=== PATIENT | male | born 1950 | race American Indian/Alaskan Native ===

== ENCOUNTER 2017-12-20 23:02 | Emergency (ER) | payer BC, OTHER ==
[2017-12-21 00:03] VITALS: BP 179/98
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
== END 2017-12-21 03:00 | disposition home or self-care (01) ==
LOC: ED 23:02
DX: M47.896 Other spondylosis, lumbar region (principal); M47.892 Other spondylosis, cervical region; I10 Essential (primary) hypertension; E78.00 Pure hypercholesterolemia, unspecified; V89.2XXA Person injured in unspecified motor-vehicle accident, traffic, initial encounter; Y93.89 Activity, other specified; Y92.89 Other specified places as the place of occurrence of the external cause; Y99.8 Other external cause status
CPT/HCPCS: 72040; 72100; 99283

== ENCOUNTER 2021-12-07 11:09 | Emergency (ER) | payer BC, OTHER ==
[2021-12-07] MEDS ORDERED: TETANUS,DIPH,PERTUSS(ACELL) VACCINE 0.5 ML SYRINGE IM ONE ×2 (12:27→16:00)
--- NOTE | 2021-12-07 13:04 | XRay Report ---
RIGHT HAND 3 VIEWS INDICATION: injury, right middle finger nail injury. COMPARISON: None. IMPRESSION: No acute osseous or soft tissue abnormality. No significant DJD. Signer Name: Mendez Kate Jr, MD Signed: 12/07/2021 12:59 PM Workstation Name: [id number]
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
[2021-12-07 16:23] VITALS: BP 138/78
== END 2021-12-07 16:56 | disposition home or self-care (01) ==
LOC: ED 11:09
DX: S61.312A Laceration without foreign body of right middle finger with damage to nail, initial encounter (principal); X58.XXXA Exposure to other specified factors, initial encounter; Y93.89 Activity, other specified; Y92.89 Other specified places as the place of occurrence of the external cause; Y99.8 Other external cause status
CPT/HCPCS: 90471; 90715; 99283